=== PATIENT | male | born 1970 | race Caucasian/White ===

== ENCOUNTER 2017-01-16 09:17 | Observation (INO) | payer OTHER ==
[~2017-01-16] VITALS: Ht 180.3 cm; Wt 93.9 kg
[2017-01-16] MEDS ORDERED: IPRATROPIUM BROM 0.5 MG/2.5ML INH SOL NEB ONE ×2 (10:00→10:15)
[2017-01-16] MEDS ORDERED: ALBUTEROL SULF 2.5 MG/0.5ML(0.5%) NEB SOLN NEB ONE ×2 (10:00→10:15)
[2017-01-16] MEDS ORDERED: SODIUM CHLORIDE 0.9% 1,000 ML IV ONE (10:10)
[2017-01-16] MEDS ORDERED: methylPREDNISolone SOD SUCC 125 MG/2 ML VL IV ONE (10:15)
[2017-01-16 10:34] LABS: Basophils # (auto) 0.1 uL; Basophils % (auto) 0.7 % (0.0-2.0); DEFINITIVE VIEW TRANSMISSION; Eosinophils # (auto) 0.9 uL; Eosinophils % (auto) 6.9 % (0.0-7.0); Hematocrit 45.8 % (41.0-53.0); Hemoglobin 15.4 g/dL (13.5-17.5); Lymphocytes # (auto) 1.9 uL; Lymphocytes % (auto) 14.8 % (10.0-50.0); Mean Corpuscular Hemoglobin 30.5 pg (28.0-32.0); Mean Corpuscular Hgb Conc. 33.6 g/dL (32.0-36.0); Mean Corpuscular Volume 90.7 fL (80.0-100.0); Mean Platelet Volume 10.3 fL (7.4-10.4); Monocytes # (auto) 0.8 uL; Neutrophils # (auto) 9.4 uL; Neutrophils % (auto) 71.6 % (37.0-80.0); Platelet Count (auto) 261 10^3/uL (140-450); Red Cell Distribution Width 14.2 % (11.6-16.0); SUSPECT VIEW TRANSMISSION; White Blood Cell 13.1 10^3/uL (4.4-10.8)
[2017-01-16 10:51] LABS: Albumin 4.6 g/dL (3.4-5.0); Bilirubin, Total 0.7 mg/dL (0.2-1.0); Calcium 9.1 mg/dL (8.5-10.1); Magnesium 2.3 mg/dL (1.6-2.6); Potassium 4.3 mmol/L (3.5-5.1); Total Protein 8.2 g/dL (6.4-8.2)
[2017-01-16 13:07] VITALS: BP 111/74
== END 2017-01-16 13:55 | disposition home or self-care (01) | DRG 203 ==
LOC: ER 09:26 → OVERFLOW 10:12 → ER 13:55
PROVIDERS: ADMIT Emergency Medicine; ATTEND Emergency Medicine
DX: J45.901 Unspecified asthma with (acute) exacerbation (principal); Z82.49 Family history of ischemic heart disease and other diseases of the circulatory system; Z83.3 Family history of diabetes mellitus
CPT/HCPCS: 36415; 71020; 80053; 83735; 85025; 93005; 94640; 96361; 96374; 99285; G0378; J2930; J7030

== ENCOUNTER 2017-09-26 20:40 | Emergency (ER) | payer OTHER ==
[~2017-09-26] VITALS: Ht 180.3 cm; Wt 88.5 kg
[2017-09-26] MEDS ORDERED: methylPREDNISolone SOD SUCC 125 MG/2 ML VL IV ONE (20:45)
[2017-09-26 21:13] LABS: Basophils # (auto) 0.1 uL; Basophils % (auto) 0.4 % (0.0-2.0); Eosinophils # (auto) 0.5 uL; Eosinophils % (auto) 4.6 % (0.0-7.0); Hemoglobin 14.6 g/dL (13.5-17.5); Lymphocytes # (auto) 1.7 uL; Lymphocytes % (auto) 14.4 % (10.0-50.0); Mean Corpuscular Hemoglobin 31.5 pg (28.0-32.0); Mean Corpuscular Volume 92.9 fL (80.0-100.0); Monocytes # (auto) 1.1 uL; Monocytes % (auto) 9.6 % (0.0-12.0); Neutrophils # (auto) 8.4 uL; Nucleated Red Blood Cells % 0.1 %; Platelet Count (auto) 228 10^3/uL (140-450); Red Blood Cells 4.63 10^6/uL (4.5-5.90); Red Cell Distribution Width 13.1 % (11.8-14.3); White Blood Cell 11.9 10^3/uL (4.4-10.8)
[2017-09-26 21:25] LABS: Alanine Aminotransferase 44 U/L (16-61); Albumin 4.3 g/dL (3.4-5.0); Alkaline Phosphatase 97 U/L (45-117); Anion Gap 8 (5-15); Aspartate Aminotransferase 24 U/L (15-37); BUN/Creatinine Ratio 22.8; Bilirubin, Total 0.3 mg/dL (0.2-1.0); Blood Urea Nitrogen 23 mg/dL (7-18); Calcium 8.6 mg/dL (8.5-10.1); Carbon Dioxide 28 mmol/L (21-32); Chloride 103 mmol/L (98-107); GFR African American 102 mL/min; GFR Non-African American 85 mL/min; Glucose 100 mg/dL (74-106); Potassium 3.4 mmol/L (3.5-5.1); Sodium 139 mmol/L (136-145)
[2017-09-26 22:05] LABS: Urine Bacteria NONE SEEN /hpf (None Seen); Urine Blood Negative /uL (Negative); Urine Specific Gravity 1.022 (1.001-1.035); Urine WBC 1 /hpf (0 - 3)
[2017-09-26] MEDS ORDERED: IPRATROPIUM BROM 0.5 MG/2.5ML INH SOL NEB ONE (22:15)
[2017-09-26] MEDS ORDERED: ALBUTEROL SULF 2.5 MG/0.5ML(0.5%) NEB SOLN NEB ONE (22:15)
[2017-09-27 00:51] VITALS: BP 115/82
[2017-09-27] MEDS ORDERED: predniSONE 20 MG TAB PO ONE (01:45)
[2017-09-27] MEDS ORDERED: POTASSIUM CHL 20 Meq TABLET PO ONE (01:45)
[2017-09-27] MEDS ORDERED: SODIUM CHLORIDE 0.9% 2,000 ML IV ONE (01:45)
== END 2017-09-27 03:02 | disposition home or self-care (01) ==
LOC: EDBD 20:40 → ER 20:44
DX: J45.901 Unspecified asthma with (acute) exacerbation (principal); J20.9 Acute bronchitis, unspecified; D72.829 Elevated white blood cell count, unspecified; E87.6 Hypokalemia; E86.0 Dehydration
CPT/HCPCS: 36415; 36600; 71010; 80053; 81001; 82805; 83880; 84484; 85025; 93005; 94640; 94660; 96361; 96374; 99285; J7030; J7512

== ENCOUNTER 2018-07-18 04:00 | Inpatient (IN) | payer OTHER ==
[~2018-07-18] VITALS: Ht 182.9 cm; Wt 93.5 kg
[2018-07-18] VITALS (59 sets, daily range): BP systolic 118–174; BP diastolic 20–112
[2018-07-18] MEDS ORDERED: methylPREDNISolone SOD SUCC 125 MG/2 ML VL ONE (04:08)
[2018-07-18] MEDS ORDERED: ALBUTEROL SULF 2.5 MG/0.5ML(0.5%) NEB SOLN ONE ×3 (04:09→08:51)
[2018-07-18 04:22] LABS: Basophils # (auto) 0.1 uL; Basophils % (auto) 1.1 % (0.0-2.0); Eosinophils # (auto) 0.6 uL; Eosinophils % (auto) 4.9 % (0.0-7.0); Hematocrit 43.9 % (41.0-53.0); Hemoglobin 14.9 g/dL (13.5-17.5); Lymphocytes # (auto) 2.5 uL; Lymphocytes % (auto) 19.5 % (10.0-50.0); Mean Corpuscular Hemoglobin 31.7 pg (28.0-32.0); Mean Corpuscular Volume 93.2 fL (80.0-100.0); Monocytes # (auto) 1.1 uL; Monocytes % (auto) 8.5 % (0.0-12.0); Neutrophils # (auto) 8.6 uL; Platelet Count (auto) 292 10^3/uL (140-450); Red Blood Cells 4.71 10^6/uL (4.5-5.90); Red Cell Distribution Width 13.3 % (11.8-14.3); White Blood Cell 13.1 10^3/uL (4.4-10.8)
[2018-07-18] MEDS ORDERED: MIDAZOLAM DRIP 50 mg/50mL 50 ML IV ONE (04:27)
[2018-07-18] MEDS ORDERED: ETOMIDATE (2MG/ML) 20ML VIAL IV ONE ×2 (04:30→06:00)
[2018-07-18] MEDS ORDERED: SUCCINYLCHOLINE CHLORIDE 20 MG/ML 10ML VIAL IV ONE ×2 (04:30→06:00)
[2018-07-18] MEDS ORDERED: methylPREDNISolone SOD SUCC 125 MG/2 ML VL IV ONE (04:30)
[2018-07-18 04:40] LABS: Alanine Aminotransferase 48 U/L (16-61); Albumin 4.2 g/dL (3.4-5.0); Anion Gap 6 (5-15); BUN/Creatinine Ratio 31.3; Blood Urea Nitrogen 31 mg/dL (7-18); Calcium 8.3 mg/dL (8.5-10.1); Carbon Dioxide 28 mmol/L (21-32); Chloride 106 mmol/L (98-107); GFR African American 105 mL/min; GFR Non-African American 86 mL/min; Glucose 189 mg/dL (74-106); Magnesium 2.7 mg/dL (1.6-2.6); Potassium 4.4 mmol/L (3.5-5.1); Sodium 140 mmol/L (136-145)
[2018-07-18 04:59] LABS: Alkaline Phosphatase 114 U/L (45-117); Aspartate Aminotransferase 27 U/L (15-37); Bilirubin, Total 0.3 mg/dL (0.2-1.0); Total Protein 8.4 g/dL (6.4-8.2)
[2018-07-18] MEDS: MIDAZOLAM DRIP 50 mg/50mL 50 ML IV SCH ×3 (05:06→19:29)
[2018-07-18] MEDS ORDERED: MAGNESIUM SULFATE 1GM/100ML 200 ML IV ONE (05:09)
[2018-07-18] MEDS: MAGNESIUM SULFATE 1GM/100ML 100 ML IV SCH ×2 (05:10→06:25)
[2018-07-18] MEDS ORDERED: NICARDIPINE 25MG/250ML BAG KIT 250 ML IV SCH (05:15)
[2018-07-18] MEDS ORDERED: PROPOFOL 100 ML IV ONE (05:25)
[2018-07-18] MEDS ORDERED: ROCURONIUM 10MG/ML 10ML VIAL IV ONE ×2 (05:46→06:45)
[2018-07-18] MEDS ORDERED: ATROPINE SULF 1 MG/10ml SYR IV ONE ×2 (06:00→12:29)
[2018-07-18 06:02] LABS: Urine Bacteria FEW /hpf (None Seen); Urine Blood Negative /uL (Negative); Urine Hyaline Cast FEW /lpf (0 - 2); Urine Mucus FEW (None Seen); Urine Specific Gravity 1.031 (1.001-1.035); Urine WBC 1 /hpf (0 - 3)
[2018-07-18] MEDS ORDERED: PROPOFOL 100 ML IV SCH (06:29)
[2018-07-18] MEDS ORDERED: LEVOFLOXACIN 750MG 150 ML IV ONE (06:30)
[2018-07-18] MEDS: PROPOFOL 100 ML IV SCH (07:07)
[2018-07-18] MEDS ORDERED: SODIUM CHLORIDE 0.9% 1,000 ML IV ONE (07:15)
[2018-07-18] MEDS ORDERED: FAMOTIDINE (10MG/ML) 2ML VL IV ONE (07:15)
[2018-07-18] MEDS ORDERED: ATRACURIUM BESYLATE 1,000 MG in D5W 5% 150 ML IV ONE (08:45)
[2018-07-18] MEDS ORDERED: ALBUTEROL SULF 2.5 MG/0.5ML(0.5%) NEB SOLN NEB STA (08:45)
[2018-07-18] MEDS: ALBUTEROL SULF 2.5 MG/0.5ML(0.5%) NEB SOLN NEB SCH ×9 (09:00→22:12)
[2018-07-18] MEDS ORDERED: IOHEXOL 350 MG/ML 100ML IJ ONE (09:13)
[2018-07-18] MEDS: ATRACURIUM BESYLATE 1,000 MG in D5W 5% 150 ML IV SCH (09:24)
[2018-07-18] MEDS ORDERED: cefTRIAXone 1GM/10ml IVPUSH 10 ML IV ONE (09:45)
[2018-07-18] MEDS ORDERED: ALBUTEROL SULF 2.5 MG/0.5ML(0.5%) NEB SOLN NEB PRN (09:45)
[2018-07-18] MEDS ORDERED: VANCOMYCIN 1GM/250ML 250 ML IV ONE (09:45)
[2018-07-18] MEDS ORDERED: VANCOMYCIN PER PHARMACY 0 MG IV SCH (09:45)
[2018-07-18] MEDS: SODIUM CHLORIDE 0.9% 1,000 ML IV SCH ×3 (10:28→21:26)
[2018-07-18] MEDS ORDERED: NITROGLYCERIN 0.4 MG SL TAB SL PRN (10:45)
[2018-07-18] MEDS ORDERED: MORPHINE SULFATE 4 MG/ML SYR/VIAL IV PRN (10:45)
[2018-07-18] MEDS ORDERED: DEXTROSE (50%) 50ML SYRG IV PRN (10:45)
[2018-07-18] MEDS ORDERED: ALBUTEROL SULF 2.5 MG/0.5ML(0.5%) NEB SOLN NEB SCH (12:00)
[2018-07-18] MEDS ORDERED: VANCOMYCIN 1,500 MG in D5W 5% 250 ML IV SCH (12:00)
[2018-07-18] MEDS ORDERED: IPRATROPIUM BROM 0.5 MG/2.5ML INH SOL NEB SCH (12:00)
[2018-07-18] MEDS: ACCU-CHEK COMFORT CURVE STRIP VI SCH ×3 (13:15→23:36)
[2018-07-18] MEDS: DOXYCYCLINE 100MG/250ML 250 ML IV SCH ×2 (13:30→21:34)
[2018-07-18] MEDS: InsuLIN REG 1unit/0.01ml Soln (100units/ml) SC SCH ×3 (13:31→23:36)
[2018-07-18] MEDS: methylPREDNISolone SOD SUCC 40 MG/ML VL IV SCH ×3 (13:31→21:34)
[2018-07-18] MEDS: IPRATROPIUM BROM 0.5 MG/2.5ML INH SOL NEB SCH ×3 (14:00→22:12)
[2018-07-18] MEDS ORDERED: POTASSIUM CHL 20MEQ/100ML 100 ML IV SCH (14:30)
[2018-07-18] MEDS ORDERED: ENOXAPARIN SOD 40 MG/0.4 ML SYRINGE SC ONE (14:30)
[2018-07-18] MEDS ORDERED: PANTOPRAZOLE 40 MG/10 ML VIAL IV ONE (14:30)
[2018-07-18 14:59] LABS: INR 0.96 (0.9-1.15); Partial Thromboplastin Time 28.3 sec (23.78-33.04); Prothrombin Time 10.3 sec (9.27-12.13)
[2018-07-18] MEDS: VANCOMYCIN 1,500 MG in D5W 5% 250 ML IV SCH (18:39)
[2018-07-18] MEDS ORDERED: fentaNYL Drip 2500mCg/250mlNS 250 ML IV ONE (18:47)
[2018-07-18] MEDS: fentaNYL Drip 2500mCg/250mlNS 250 ML IV SCH (19:00)
[2018-07-18] MEDS: BUDESONIDE (INHALATION) 0.5 MG/2 ML NEB NEB SCH (22:12)
[2018-07-18] MEDS ORDERED: PRE5T PO (22:52)
[2018-07-18] MEDS ORDERED: TRIA0.1O TOP (22:52)
[2018-07-19] VITALS (107 sets, daily range): BP systolic 87–146; BP diastolic 51–84
[2018-07-19] MEDS: PROPOFOL 100 ML IV SCH ×5 (00:53→22:47)
[2018-07-19] MEDS: IPRATROPIUM BROM 0.5 MG/2.5ML INH SOL NEB SCH ×6 (02:05→22:21)
[2018-07-19] MEDS: ALBUTEROL SULF 2.5 MG/0.5ML(0.5%) NEB SOLN NEB SCH ×6 (02:05→22:21)
[2018-07-19 04:13] LABS: Albumin 3.1 g/dL (3.4-5.0); BUN/Creatinine Ratio 20.9; Calcium 6.9 mg/dL (8.5-10.1); Potassium 4.2 mmol/L (3.5-5.1)
[2018-07-19 04:14] LABS: Hematocrit 38.2 % (41.0-53.0); Hemoglobin 14.7 g/dL (13.5-17.5); Platelet Count (auto) 218 10^3/uL (140-450); Red Blood Cells 3.77 10^6/uL (4.5-5.90); Red Cell Distribution Width 15.5 % (11.8-14.3); White Blood Cell 13.2 10^3/uL (4.4-10.8)
[2018-07-19 04:16] LABS: Bilirubin, Total 0.8 mg/dL (0.2-1.0); Total Protein 6.9 g/dL (6.4-8.2)
[2018-07-19 04:19] LABS: Mean Corpuscular Hgb Conc. 38.4 g/dL (32.0-36.0)
[2018-07-19 04:20] LABS: Mean Corpuscular Volume 98.1 fL (80.0-100.0)
[2018-07-19 04:22] LABS: Mean Corpuscular Hemoglobin 38.9 pg (28.0-32.0)
[2018-07-19 04:23] LABS: Basophils % (manual) 0 (0.0-2.0); Blast Cells 0; Eosinophils % (manual) 0 (0-7); Myelocytes % 0; Promyelocytes % 0; Reactive Lymphocytes 0
[2018-07-19] MEDS: ACCU-CHEK COMFORT CURVE STRIP VI SCH ×3 (05:46→18:00)
[2018-07-19] MEDS: VANCOMYCIN 1,500 MG in D5W 5% 250 ML IV SCH ×2 (05:46→18:30)
[2018-07-19] MEDS: methylPREDNISolone SOD SUCC 40 MG/ML VL IV SCH ×3 (05:46→21:26)
[2018-07-19] MEDS: InsuLIN REG 1unit/0.01ml Soln (100units/ml) SC SCH ×3 (05:46→18:30)
[2018-07-19 05:58] LABS: Band Neutrophils % (manual) 11; Lymphocytes % (manual) 5 (10.0-50.0); Metamyelocytes % 2; Monocytes % (manual) 5 (0-12)
[2018-07-19] MEDS: BUDESONIDE (INHALATION) 0.5 MG/2 ML NEB NEB SCH ×2 (06:06→22:21)
[2018-07-19] MEDS ORDERED: cefTRIAXone 1GM/10ml IVPUSH 10 ML IV SCH (09:00)
[2018-07-19] MEDS: MIDAZOLAM DRIP 50 mg/50mL 50 ML IV SCH ×2 (10:07→13:52)
[2018-07-19] MEDS: PANTOPRAZOLE 40 MG/10 ML VIAL IV SCH (10:33)
[2018-07-19] MEDS: ENOXAPARIN SOD 40 MG/0.4 ML SYRINGE SC SCH (10:34)
[2018-07-19] MEDS: ATRACURIUM BESYLATE 1,000 MG in D5W 5% 150 ML IV SCH (10:38)
[2018-07-19] MEDS: DOXYCYCLINE 100MG/250ML 250 ML IV SCH (10:42)
[2018-07-19] MEDS ORDERED: SODIUM CHLORIDE 0.9% 500 ML IV ONE ×2 (12:00→14:45)
[2018-07-19] MEDS: SODIUM CHLORIDE 0.9% 1,000 ML IV SCH (13:00)
[2018-07-19] MEDS ORDERED: AZITHROMYCIN 500MG/ 250ML 250 ML IV ONE (13:15)
[2018-07-19] MEDS ORDERED: LIDOCAINE 1% (LOCAL ANESTH.) PF 5ml SDV ID ONE (18:00)
[2018-07-19] MEDS: fentaNYL Drip 2500mCg/250mlNS 250 ML IV SCH (18:46)
[2018-07-19] MEDS: SODIUM CHLOR 0.9% PF (SALINE LOCK) 10ML VIAL/SYR IV SCH (21:26)
[2018-07-20] VITALS (108 sets, daily range): BP systolic 91–128; BP diastolic 4–98
[2018-07-20] MEDS: ACCU-CHEK COMFORT CURVE STRIP VI SCH ×4 (00:01→18:25)
[2018-07-20] MEDS: SODIUM CHLORIDE 0.9% 1,000 ML IV SCH (02:20)
[2018-07-20] MEDS: IPRATROPIUM BROM 0.5 MG/2.5ML INH SOL NEB SCH ×6 (02:25→22:23)
[2018-07-20] MEDS: ALBUTEROL SULF 2.5 MG/0.5ML(0.5%) NEB SOLN NEB SCH ×6 (02:25→22:23)
[2018-07-20] MEDS: MIDAZOLAM DRIP 50 mg/50mL 50 ML IV SCH ×3 (03:00→21:03)
[2018-07-20 04:57] LABS: Hematocrit 36.6 % (41.0-53.0); Hemoglobin 12.3 g/dL (13.5-17.5); Mean Corpuscular Hemoglobin 31.8 pg (28.0-32.0); Mean Corpuscular Hgb Conc. 33.7 g/dL (32.0-36.0); Mean Corpuscular Volume 94.5 fL (80.0-100.0); Platelet Count (auto) 191 10^3/uL (140-450); Red Blood Cells 3.87 10^6/uL (4.5-5.90); Red Cell Distribution Width 13.9 % (11.8-14.3); White Blood Cell 17.3 10^3/uL (4.4-10.8)
[2018-07-20 05:03] LABS: Basophils % (manual) 0 (0.0-2.0); Blast Cells 0; Eosinophils % (manual) 0 (0-7); Metamyelocytes % 0; Myelocytes % 0; Promyelocytes % 0; Reactive Lymphocytes 0
[2018-07-20 05:17] LABS: Anion Gap 9 (5-15); BUN/Creatinine Ratio 28.7; Blood Urea Nitrogen 27 mg/dL (7-18); Calcium 7.6 mg/dL (8.5-10.1); Carbon Dioxide 24 mmol/L (21-32); Chloride 110 mmol/L (98-107); GFR African American 111 mL/min; GFR Non-African American 92 mL/min; Glucose 137 mg/dL (74-106); Magnesium 3.1 mg/dL (1.6-2.6); Potassium 4.6 mmol/L (3.5-5.1); Sodium 143 mmol/L (136-145)
[2018-07-20 05:54] LABS: Band Neutrophils % (manual) 6; Lymphocytes % (manual) 4 (10.0-50.0); Monocytes % (manual) 2 (0-12)
[2018-07-20] MEDS: VANCOMYCIN 1,500 MG in D5W 5% 250 ML IV SCH ×2 (05:55→16:00)
[2018-07-20] MEDS: methylPREDNISolone SOD SUCC 40 MG/ML VL IV SCH ×3 (05:55→21:33)
[2018-07-20] MEDS: InsuLIN REG 1unit/0.01ml Soln (100units/ml) SC SCH ×4 (05:55→18:00)
[2018-07-20] MEDS: PROPOFOL 100 ML IV SCH (09:00)
[2018-07-20] MEDS: ENOXAPARIN SOD 40 MG/0.4 ML SYRINGE SC SCH (09:41)
[2018-07-20] MEDS: cefTRIAXone 1GM/50ML D5W 50 ML IV SCH (09:43)
[2018-07-20] MEDS: SODIUM CHLOR 0.9% PF (SALINE LOCK) 10ML VIAL/SYR IV SCH ×2 (09:44→21:36)
[2018-07-20] MEDS: AZITHROMYCIN 500MG/ 250ML 250 ML IV SCH (09:44)
[2018-07-20] MEDS: PANTOPRAZOLE 40 MG/10 ML VIAL IV SCH (09:44)
[2018-07-20] MEDS: BUDESONIDE (INHALATION) 0.5 MG/2 ML NEB NEB SCH ×2 (10:03→22:23)
[2018-07-20] MEDS ORDERED: POTASSIUM EFFERVESENT TAB 25 MEQ GT ONE (15:45)
[2018-07-20] MEDS ORDERED: FUROSEMIDE 20 MG/2 ML VIAL IV ONE (15:45)
[2018-07-20] MEDS ORDERED: Glucerna 1.2 Cal 1Liter BOTTLE GT SCH (15:45)
[2018-07-20] MEDS ORDERED: VANCOMYCIN 1,500 MG in D5W 5% 250 ML IV ONE (16:00)
[2018-07-20] MEDS: fentaNYL Drip 2500mCg/250mlNS 250 ML IV SCH (20:06)
[2018-07-21] VITALS (85 sets, daily range): BP systolic 107–155; BP diastolic 54–106
[2018-07-21] MEDS: ACCU-CHEK COMFORT CURVE STRIP VI SCH ×4 (00:35→18:19)
[2018-07-21] MEDS: InsuLIN REG 1unit/0.01ml Soln (100units/ml) SC SCH ×4 (00:35→18:30)
[2018-07-21] MEDS: VANCOMYCIN 1,500 MG in D5W 5% 250 ML IV SCH ×2 (02:10→12:33)
[2018-07-21] MEDS: MIDAZOLAM DRIP 50 mg/50mL 50 ML IV SCH ×3 (02:10→07:15)
[2018-07-21] MEDS: ALBUTEROL SULF 2.5 MG/0.5ML(0.5%) NEB SOLN NEB SCH ×6 (02:12→22:06)
[2018-07-21] MEDS: IPRATROPIUM BROM 0.5 MG/2.5ML INH SOL NEB SCH ×6 (02:13→22:06)
[2018-07-21 05:41] LABS: Hematocrit 36.7 % (41.0-53.0); Hemoglobin 12.3 g/dL (13.5-17.5); Mean Corpuscular Hemoglobin 31.4 pg (28.0-32.0); Mean Corpuscular Hgb Conc. 33.6 g/dL (32.0-36.0); Mean Corpuscular Volume 93.5 fL (80.0-100.0); Platelet Count (auto) 198 10^3/uL (140-450); Red Blood Cells 3.93 10^6/uL (4.5-5.90); Red Cell Distribution Width 13.5 % (11.8-14.3); White Blood Cell 17.2 10^3/uL (4.4-10.8)
[2018-07-21 05:44] LABS: BUN/Creatinine Ratio 43.8; Basophils % (manual) 0 (0.0-2.0); Blast Cells 0; Calcium 7.8 mg/dL (8.5-10.1); Eosinophils % (manual) 0 (0-7); Magnesium 3.1 mg/dL (1.6-2.6); Metamyelocytes % 0; Myelocytes % 0; Potassium 4.7 mmol/L (3.5-5.1); Promyelocytes % 0; Reactive Lymphocytes 0
[2018-07-21] MEDS: methylPREDNISolone SOD SUCC 40 MG/ML VL IV SCH ×3 (06:36→22:20)
[2018-07-21 06:54] LABS: Band Neutrophils % (manual) 2; Lymphocytes % (manual) 2 (10.0-50.0); Monocytes % (manual) 3 (0-12)
[2018-07-21] MEDS: cefTRIAXone 1GM/50ML D5W 50 ML IV SCH (09:14)
[2018-07-21] MEDS: PANTOPRAZOLE 40 MG/10 ML VIAL IV SCH (09:14)
[2018-07-21] MEDS: AZITHROMYCIN 500MG/ 250ML 250 ML IV SCH (09:14)
[2018-07-21] MEDS: SODIUM CHLOR 0.9% PF (SALINE LOCK) 10ML VIAL/SYR IV SCH ×2 (09:15→22:20)
[2018-07-21] MEDS: ENOXAPARIN SOD 40 MG/0.4 ML SYRINGE SC SCH (09:15)
[2018-07-21] MEDS: BUDESONIDE (INHALATION) 0.5 MG/2 ML NEB NEB SCH ×2 (09:58→22:06)
[2018-07-21] MEDS ORDERED: POTASSIUM EFFERVESENT TAB 25 MEQ PO ONE (11:45)
[2018-07-21] MEDS ORDERED: FUROSEMIDE 20 MG/2 ML VIAL IV ONE (11:45)
[2018-07-21] MEDS ORDERED: ACETAMINOPHEN 325 MG RECT SUPP PR PRN (17:00)
[2018-07-21] MEDS: fentaNYL Drip 2500mCg/250mlNS 250 ML IV SCH (18:19)
[2018-07-22] VITALS (28 sets, daily range): BP systolic 100–148; BP diastolic 48–90
[2018-07-22] MEDS: VANCOMYCIN 1,500 MG in D5W 5% 250 ML IV SCH ×2 (00:42→08:02)
[2018-07-22] MEDS: ACCU-CHEK COMFORT CURVE STRIP VI SCH ×2 (00:42→05:58)
[2018-07-22] MEDS: InsuLIN REG 1unit/0.01ml Soln (100units/ml) SC SCH ×2 (00:43→05:59)
[2018-07-22] MEDS: ALBUTEROL SULF 2.5 MG/0.5ML(0.5%) NEB SOLN NEB SCH ×5 (02:27→19:03)
[2018-07-22] MEDS: IPRATROPIUM BROM 0.5 MG/2.5ML INH SOL NEB SCH ×6 (02:27→19:03)
[2018-07-22 04:16] LABS: Basophils # (auto) 0 uL; Basophils % (auto) 0.1 % (0.0-2.0); Eosinophils # (auto) 0 uL; Hemoglobin 13.2 g/dL (13.5-17.5); Lymphocytes # (auto) 0.6 uL; Lymphocytes % (auto) 3.5 % (10.0-50.0); Mean Corpuscular Hemoglobin 31.3 pg (28.0-32.0); Mean Corpuscular Hgb Conc. 33.8 g/dL (32.0-36.0); Mean Corpuscular Volume 92.5 fL (80.0-100.0); Monocytes # (auto) 1.1 uL; Neutrophils # (auto) 15.8 uL; Neutrophils % (auto) 90.4 % (37.0-80.0); Platelet Count (auto) 216 10^3/uL (140-450); Red Blood Cells 4.22 10^6/uL (4.5-5.90); Red Cell Distribution Width 13.3 % (11.8-14.3); White Blood Cell 17.5 10^3/uL (4.4-10.8)
[2018-07-22 04:36] LABS: Calcium 8.1 mg/dL (8.5-10.1); Potassium 3.9 mmol/L (3.5-5.1)
[2018-07-22 04:43] LABS: BUN/Creatinine Ratio 44.6
[2018-07-22] MEDS: methylPREDNISolone SOD SUCC 40 MG/ML VL IV SCH ×3 (05:58→21:48)
[2018-07-22] MEDS: PROPOFOL 100 ML IV SCH (06:08)
[2018-07-22] MEDS: BUDESONIDE (INHALATION) 0.5 MG/2 ML NEB NEB SCH ×2 (10:00→19:03)
[2018-07-22] MEDS: SODIUM CHLOR 0.9% PF (SALINE LOCK) 10ML VIAL/SYR IV SCH ×2 (10:13→21:49)
[2018-07-22] MEDS: PANTOPRAZOLE 40 MG/10 ML VIAL IV SCH (10:13)
[2018-07-22] MEDS: AZITHROMYCIN 500MG/ 250ML 250 ML IV SCH (10:13)
[2018-07-22] MEDS: cefTRIAXone 1GM/50ML D5W 50 ML IV SCH (10:13)
[2018-07-22] MEDS: ENOXAPARIN SOD 40 MG/0.4 ML SYRINGE SC SCH (10:13)
[2018-07-22] MEDS ORDERED: DOXYCYCLINE 100 MG TAB/CAP PO ONE (11:30)
[2018-07-22] MEDS ORDERED: DOCUSATE SOD 100 MG CAP PO ONE (12:30)
[2018-07-22] MEDS ORDERED: ZOLPIDEM TARTRATE 5 MG TAB PO PRN (18:30)
[2018-07-22] MEDS: ONDANSETRON HCL 4 MG/2 ML VIAL IV PRN (18:54)
[2018-07-22] MEDS: ACETAMINOPHEN 500 MG TAB PO PRN (20:52)
[2018-07-22] MEDS: DOXYCYCLINE 100 MG TAB/CAP PO SCH (21:48)
[2018-07-22] MEDS: DOCUSATE SOD 100 MG CAP PO SCH (21:49)
[2018-07-23] VITALS (7 sets, daily range): BP systolic 115–123; BP diastolic 74–85
[2018-07-23] MEDS: ACETAMINOPHEN 500 MG TAB PO PRN ×2 (04:38→10:56)
[2018-07-23 05:58] LABS: Basophils # (auto) 0 uL; Basophils % (auto) 0.1 % (0.0-2.0); Eosinophils # (auto) 0 uL; Hematocrit 38.3 % (41.0-53.0); Hemoglobin 13.1 g/dL (13.5-17.5); Lymphocytes # (auto) 0.8 uL; Lymphocytes % (auto) 4.8 % (10.0-50.0); Mean Corpuscular Hemoglobin 31.8 pg (28.0-32.0); Mean Corpuscular Hgb Conc. 34.4 g/dL (32.0-36.0); Mean Corpuscular Volume 92.6 fL (80.0-100.0); Monocytes % (auto) 6.4 % (0.0-12.0); Neutrophils # (auto) 14.4 uL; Neutrophils % (auto) 88.7 % (37.0-80.0); Nucleated Red Blood Cells % 0.1 %; Platelet Count (auto) 209 10^3/uL (140-450); Red Blood Cells 4.13 10^6/uL (4.5-5.90); Red Cell Distribution Width 13.1 % (11.8-14.3); White Blood Cell 16.2 10^3/uL (4.4-10.8)
[2018-07-23] MEDS: methylPREDNISolone SOD SUCC 40 MG/ML VL IV SCH (06:04)
[2018-07-23 06:10] LABS: BUN/Creatinine Ratio 40.8; Calcium 8.1 mg/dL (8.5-10.1); Potassium 4.7 mmol/L (3.5-5.1)
[2018-07-23] MEDS: IPRATROPIUM BROM 0.5 MG/2.5ML INH SOL NEB SCH ×4 (06:43→19:23)
[2018-07-23] MEDS: ALBUTEROL SULF 2.5 MG/0.5ML(0.5%) NEB SOLN NEB SCH ×4 (06:43→19:23)
[2018-07-23] MEDS: BUDESONIDE (INHALATION) 0.5 MG/2 ML NEB NEB SCH ×2 (06:43→19:24)
[2018-07-23] MEDS: SODIUM CHLOR 0.9% PF (SALINE LOCK) 10ML VIAL/SYR IV SCH ×2 (10:00→21:53)
[2018-07-23] MEDS: DOXYCYCLINE 100 MG TAB/CAP PO SCH ×2 (10:01→21:52)
[2018-07-23] MEDS: ENOXAPARIN SOD 40 MG/0.4 ML SYRINGE SC SCH (10:01)
[2018-07-23] MEDS: DOCUSATE SOD 100 MG CAP PO SCH ×2 (10:02→21:54)
[2018-07-23] MEDS: ONDANSETRON HCL 4 MG/2 ML VIAL IV PRN (10:55)
[2018-07-23] MEDS ORDERED: TEMAZEPAM 15 MG CAP PO PRN (11:30)
[2018-07-23] MEDS: HYDROcodone-ACET 5/325MG TAB PO PRN ×3 (14:49→21:53)
[2018-07-24 05:00] VITALS: BP 118/73
[2018-07-24] MEDS: HYDROcodone-ACET 5/325MG TAB PO PRN (05:34)
[2018-07-24] MEDS: ALBUTEROL SULF 2.5 MG/0.5ML(0.5%) NEB SOLN NEB SCH ×2 (05:57→10:11)
[2018-07-24] MEDS: IPRATROPIUM BROM 0.5 MG/2.5ML INH SOL NEB SCH ×2 (05:57→10:11)
[2018-07-24 08:22] VITALS: BP 113/70
[2018-07-24] MEDS: DOXYCYCLINE 100 MG TAB/CAP PO SCH (09:38)
[2018-07-24] MEDS: DOCUSATE SOD 100 MG CAP PO SCH (09:38)
[2018-07-24] MEDS: SODIUM CHLOR 0.9% PF (SALINE LOCK) 10ML VIAL/SYR IV SCH (09:38)
[2018-07-24] MEDS ORDERED: predniSONE 20 MG TAB PO SCH (10:00)
[2018-07-24] MEDS: BUDESONIDE (INHALATION) 0.5 MG/2 ML NEB NEB SCH (10:11)
[2018-07-24 13:33] VITALS: BP 117/73
== END 2018-07-24 13:50 | disposition home or self-care (01) | DRG 871 ==
LOC: EDBD 04:00 → ER 04:03 → TELE 04:04 → ICU WEST 11:12 → TELE-CENTR 07-22 20:00 → CENTRAL 07-23 13:01
PROVIDERS: ADMIT Internal Medicine; ATTEND Internal Medicine
PROC: 5A1945Z Respiratory Ventilation, 24-96 Consecutive Hours (ICD-10-PCS; principal; 2018-07-18)
PROC: 0BH17EZ Insertion of Endotracheal Airway into Trachea, Via Natural or Artificial Opening (ICD-10-PCS; 2018-07-18)
PROC: 5A09357 Assistance with Respiratory Ventilation, Less than 24 Consecutive Hours, Continuous Positive Airway Pressure (ICD-10-PCS; 2018-07-18)
PROC: 02HV33Z Insertion of Infusion Device into Superior Vena Cava, Percutaneous Approach (ICD-10-PCS; 2018-07-19)
DX: A41.9 Sepsis, unspecified organism (principal); J96.01 Acute respiratory failure with hypoxia; J96.02 Acute respiratory failure with hypercapnia; J18.0 Bronchopneumonia, unspecified organism; J45.52 Severe persistent asthma with status asthmaticus; I10 Essential (primary) hypertension; L30.9 Dermatitis, unspecified; E66.3 Overweight; Z79.51 Long term (current) use of inhaled steroids; Z82.49 Family history of ischemic heart disease and other diseases of the circulatory system; Z91.81 History of falling; Z83.3 Family history of diabetes mellitus; Z68.28 Body mass index [BMI] 28.0-28.9, adult; Z88.1 Allergy status to other antibiotic agents
CPT/HCPCS: 31500; 36415; 36569; 36600; 70450; 71045; 71260; 74177; 80048; 80053; 80202; 81001; 82805; 82962; 83036; 83735; 83880; 84443; 84484; 85007; 85025; 85027; 85379; 85610; 85730; 87040; 87070; 87081; 87086; 87205; 93005; 93926; 93971; 94002; 94003; 94640; 94644; 96365; 96367; 96375; 97116; 97163; 97530; A6257; C9113; J0330; J0696; J1815; J1956; J2250; J2405; J2704; J3480; J3490; J7060

== ENCOUNTER 2020-03-04 14:01 | Emergency (ER) | payer OTHER ==
[~2020-03-04] VITALS: Ht 177.8 cm; Wt 90.7 kg
[~2020-03-04 14:01] MED LIST: PRE5T PO; TRIA0.1O TOP
[2020-03-04 14:16] VITALS: BP 114/62
[2020-03-04] MEDS ORDERED: methylPREDNISolone SOD SUCC 125 MG/2 ML VL IM ONE (15:45)
== END 2020-03-04 16:12 | disposition home or self-care (01) ==
LOC: EDBD 14:01 → ER 14:01
DX: J45.901 Unspecified asthma with (acute) exacerbation (principal)
CPT/HCPCS: 71046; 96372; 99283; J2930

== ENCOUNTER 2020-03-18 00:04 | Emergency (ER) | payer OTHER ==
[~2020-03-18] VITALS: Ht 180.3 cm; Wt 90.7 kg
[2020-03-18] MEDS ORDERED: IPRATROPIUM BROM 0.5 MG/2.5ML INH SOL NEB ONE (00:30)
[2020-03-18] MEDS ORDERED: ALBUTEROL SULF 2.5 MG/0.5ML(0.5%) NEB SOLN NEB ONE (00:30)
[2020-03-18 01:39] LABS: INR 1.08 (0.9-1.15); Partial Thromboplastin Time 28.5 sec (23.64-32.05)
[2020-03-18 01:43] LABS: Alanine Aminotransferase 47 U/L (16-61); Albumin 4.1 g/dL (3.4-5.0); Anion Gap 7 (5-15); Aspartate Aminotransferase 25 U/L (15-37); BUN/Creatinine Ratio 23.3; Blood Urea Nitrogen 27 mg/dL (7-18); Calcium 8.6 mg/dL (8.5-10.1); Carbon Dioxide 27 mmol/L (21-32); Chloride 103 mmol/L (98-107); GFR African American 86 mL/min; GFR Non-African American 71 mL/min; Glucose 98 mg/dL (74-106); Magnesium 2.2 mg/dL (1.6-2.6); Potassium 3.8 mmol/L (3.5-5.1); Sodium 137 mmol/L (136-145)
[2020-03-18 01:48] LABS: Alkaline Phosphatase 99 U/L (45-117); Bilirubin, Total 0.4 mg/dL (0.2-1.0); Total Protein 7.6 g/dL (6.4-8.2)
[2020-03-18 02:19] LABS: Basophils # (auto) 0.1 10 ^3/uL (0-0.2); Basophils % (auto) 0.4 % (0.0-2.0); Eosinophils # (auto) 0.7 10 ^3/uL (0-0.8); Eosinophils % (auto) 3.9 % (0.0-7.0); Hematocrit 44.7 % (41.0-53.0); Hemoglobin 15.1 g/dL (13.5-17.5); Lymphocytes # (auto) 1.5 10 ^3/uL (0.4-5.4); Lymphocytes % (auto) 8.9 % (10.0-50.0); Mean Corpuscular Hemoglobin 31.3 pg (28.0-32.0); Mean Corpuscular Hgb Conc. 33.8 g/dL (32.0-36.0); Mean Corpuscular Volume 92.7 fL (80.0-100.0); Monocytes # (auto) 0.7 10 ^3/uL (0-1.3); Monocytes % (auto) 4.4 % (0.0-12.0); Neutrophils % (auto) 82.4 % (37.0-80.0); Nucleated Red Blood Cells % 0.1 %; Platelet Count (auto) 219 10^3/uL (140-450); Red Blood Cells 4.82 10^6/uL (4.5-5.90); Red Cell Distribution Width 13.1 % (11.8-14.3)
[2020-03-18] MEDS ORDERED: methylPREDNISolone SOD SUCC 125 MG/2 ML VL IV ONE (04:15)
[2020-03-18 05:05] VITALS: BP 102/64
== END 2020-03-18 04:41 | disposition home or self-care (01) ==
LOC: ER 00:04 → EDBD 00:04 → ER 04:41
DX: J45.901 Unspecified asthma with (acute) exacerbation (principal); J06.9 Acute upper respiratory infection, unspecified
CPT/HCPCS: 36415; 71045; 80053; 83735; 83880; 84484; 85025; 85610; 85730; 93005; 94644; 96374; 99285; J2930; J7644

== ENCOUNTER 2020-04-03 04:47 | Inpatient (IN) | payer OTHER ==
[~2020-04-03] VITALS: Ht 180.3 cm; Wt 101.4 kg
[2020-04-03] MEDS ORDERED: methylPREDNISolone SOD SUCC 125 MG/2 ML VL ONE (04:53)
[2020-04-03] MEDS ORDERED: IPRATROPIUM BROM 0.5 MG/2.5ML INH SOL NEB ONE (05:00)
[2020-04-03] MEDS ORDERED: ALBUTEROL SULF 2.5 MG/0.5ML(0.5%) NEB SOLN HHN ONE (05:00)
[2020-04-03] MEDS ORDERED: ALBUTEROL SULF 2.5 MG/0.5ML(0.5%) NEB SOLN NEB ONE (05:00)
[2020-04-03] MEDS ORDERED: IPRATROPIUM BROM 0.5 MG/2.5ML INH SOL HHN ONE (05:00)
[2020-04-03] MEDS ORDERED: methylPREDNISolone SOD SUCC 125 MG/2 ML VL IV ONE ×2 (05:00)
[2020-04-03 05:34] LABS: Basophils # (auto) 0.1 10 ^3/uL (0-0.2); Basophils % (auto) 0.8 % (0.0-2.0); Eosinophils # (auto) 0.6 10 ^3/uL (0-0.8); Eosinophils % (auto) 6.1 % (0.0-7.0); Lymphocytes % (auto) 30.9 % (10.0-50.0); Mean Corpuscular Hemoglobin 31.5 pg (28.0-32.0); Mean Corpuscular Hgb Conc. 34.1 g/dL (32.0-36.0); Mean Corpuscular Volume 92.4 fL (80.0-100.0); Monocytes # (auto) 0.7 10 ^3/uL (0-1.3); Monocytes % (auto) 7.1 % (0.0-12.0); Neutrophils # (auto) 5.4 10 ^3/uL (1.6-8.6); Neutrophils % (auto) 55.1 % (37.0-80.0); Platelet Count (auto) 229 10^3/uL (140-450); Red Blood Cells 4.77 10^6/uL (4.5-5.90); Red Cell Distribution Width 13.2 % (11.8-14.3); White Blood Cell 9.8 10^3/uL (4.4-10.8)
[2020-04-03 05:59] LABS: Anion Gap 7 (5-15); Calcium 8.3 mg/dL (8.5-10.1); Carbon Dioxide 25 mmol/L (21-32); Chloride 109 mmol/L (98-107); Glucose 112 mg/dL (74-106); Magnesium 2.2 mg/dL (1.6-2.6); Potassium 3.7 mmol/L (3.5-5.1); Sodium 141 mmol/L (136-145)
[2020-04-03] MEDS ORDERED: LORazepam 0.5 MG TAB PO PRN (06:00)
[2020-04-03] MEDS ORDERED: HYDROcodone-ACET 5/325MG TAB PO PRN (06:00)
[2020-04-03] MEDS ORDERED: ALBUTEROL SULF 2.5 MG/0.5ML(0.5%) NEB SOLN NEB PRN (06:00)
[2020-04-03] MEDS ORDERED: ACETAMINOPHEN 325 MG TAB PO PRN (06:00)
[2020-04-03] MEDS ORDERED: MORPHINE SULF INJ 2 MG/ML SYRINGE 1ML IV PRN (06:00)
[2020-04-03] MEDS ORDERED: DOCUSATE SOD 100 MG CAP PO PRN (06:00)
[2020-04-03] MEDS ORDERED: IPRATROPIUM BROM 0.5 MG/2.5ML INH SOL NEB PRN (06:00)
[2020-04-03] MEDS ORDERED: ONDANSETRON HCL 4 MG/2 ML VIAL IV PRN (06:00)
[2020-04-03 06:04] LABS: Alanine Aminotransferase 80 U/L (16-61); Alkaline Phosphatase 103 U/L (45-117); Aspartate Aminotransferase 31 U/L (15-37); BUN/Creatinine Ratio 23.1; Bilirubin, Total 0.2 mg/dL (0.2-1.0); Blood Urea Nitrogen 24 mg/dL (7-18); GFR African American 98 mL/min; GFR Non-African American 81 mL/min; Total Protein 6.7 g/dL (6.4-8.2)
[2020-04-03 07:02] LABS: Cholesterol 203 mg/dL (< 200); HDL Cholesterol 32 mg/dL (40-59); LDL Cholesterol 133 mg/dL (< 100); Triglycerides 250 mg/dL (< 150)
[2020-04-03 07:27] LABS: Urine Bacteria NONE SEEN /hpf (None Seen); Urine Blood Negative /uL (Negative); Urine Specific Gravity 1.019 (1.001-1.035); Urine WBC <1 /hpf (0 - 3)
--- NOTE | 2020-04-03 09:25 | NUR ---
REPORT Received report from Linnette FIELD, awaiting for patient to arrive to room 265.
[2020-04-03] MEDS ORDERED: methylPREDNISolone SOD SUCC 125 MG/2 ML VL IV SCH (10:00)
--- NOTE | 2020-04-03 10:20 | NUR ---
Telemetry admit from ANITA CARTER admitted to Telemetry unit after SBAR received. Patient oriented to BOYD KAUR RN primary RN, unit, room, bed, and unit policies regarding patient care and visiting hours. Patient now on continuous telemetry monitoring, tele box # 17 and telemetry reading on arrival to unit is SR. Patient placed on bedside oxygen, weighed by bedscale and encouraged to call if they need something. All questions and concerns addressed, patient verbalized understanding.
[2020-04-03] MEDS: cefTRIAXone 1GM/50ML D5W 50 ML IV SCH (10:53)
--- NOTE | 2020-04-03 12:33 | NUR ---
COVID Patient tested negative for covid-19. Will notify physician and charge nurse to transfer patient to regular floor.
--- NOTE | 2020-04-03 14:16 | NUR ---
Patient transferred to room 201 with RASHDIA Kong. Patient on RA with O2 Sat of 93%. No distress, sob, or pain noted at this time.
--- NOTE | 2020-04-03 14:16 | NUR ---
PATIENT ARRIVED ON UNIT. ORIENTED TO THIS RN, CALL LIGHT, AND TELE UNIT. PATIENT A/O X 4CONCERNS ADDRESSED. PATIENT RESPIRATIONS EVEN UNLABORED, LUNG SOUNDS CLEAR ON ROOM AIR. FALL PRECAUTIONS IN PLACE. WILL CONTINUE TO MONITOR.
--- NOTE | 2020-04-03 14:21 | NUR ---
Gave report to Ibis FIELD. If Luann has any questions, she can call this nurse.
[2020-04-03 16:45] VITALS: BP 115/87
--- NOTE | 2020-04-03 18:58 | NUR ---
CARE ENDORSED TO JESSICA FIELD
--- NOTE | 2020-04-03 19:35 | NUR ---
Opening Shift Note Assumed care of patient, awake and alert X4. No S/S of distress/SOB or pain. Call light is within reach, side rails up x2, bed is in the lowest position. Instructed on POC and to call for assist PRN, will continue to monitor for changes Q1hr and PRN.
--- NOTE | 2020-04-03 20:16 | NUR ---
Respiratory note: ASSESSED PT FOR PRN MED NEB TX. PS SHOWS NO S/S OF SOB OR RESPIRATORY DISTRESS. INFORMED PT IF SOB OCCURS CONTACT RESPIRATORY FOR TX. WILL CONTINUE TO MONITOR.
[2020-04-03 22:00] VITALS: BP 129/86
[2020-04-03] MEDS: methylPREDNISolone SOD SUCC 40 MG/ML VL IV SCH (22:08)
[2020-04-03] MEDS: DOXYCYCLINE 100 MG TAB/CAP PO SCH (22:09)
--- NOTE | 2020-04-04 01:28 | NUR ---
Paged respiratory, patient is asking for a breathing treatment, audible wheezing noted.
[2020-04-04 05:00] VITALS: BP 124/75
[2020-04-04] MEDS: methylPREDNISolone SOD SUCC 40 MG/ML VL IV SCH (05:58)
--- NOTE | 2020-04-04 07:00 | NUR ---
Opening Shift Note Received report on the patient. Awake lying in bed. Patient shows no signs of distress at this time. Discussed the plan of care with the patient. Bed in lowest position, side rails up x2, and the call light is within reach.
[2020-04-04 09:00] VITALS: BP 126/90
[2020-04-04] MEDS: cefTRIAXone 1GM/50ML D5W 50 ML IV SCH (10:20)
[2020-04-04] MEDS: DOXYCYCLINE 100 MG TAB/CAP PO SCH (10:20)
[2020-04-04 12:38] VITALS: BP 126/90
[2020-04-04 13:00] VITALS: BP 104/80
== END 2020-04-04 14:02 | disposition home or self-care (01) | DRG 202 ==
LOC: ER 04:47 → EDBD 04:47 → OVERFLOW 04:48 → EAST 10:11 → CENTRAL 14:17
PROVIDERS: ADMIT Hospitalist; ATTEND Internal Medicine
DX: J45.902 Unspecified asthma with status asthmaticus (principal); J18.9 Pneumonia, unspecified organism; E66.9 Obesity, unspecified; Z20.828 Contact with and (suspected) exposure to other viral communicable diseases; Z68.31 Body mass index [BMI] 31.0-31.9, adult; Z82.5 Family history of asthma and other chronic lower respiratory diseases; Z88.1 Allergy status to other antibiotic agents; Z79.899 Other long term (current) drug therapy
CPT/HCPCS: 36415; 71045; 80053; 80061; 81001; 83036; 83605; 83735; 83880; 84484; 85025; 87040; 87070; 87081; 87804; 87880; 94640; 94660; 99291; G0378; J0696

== ENCOUNTER 2021-04-28 20:45 | Emergency (ER) | payer OTHER ==
[~2021-04-28] VITALS: Ht 182.9 cm; Wt 99.8 kg
[2021-04-28 20:45] VITALS: BP 133/84
== END 2021-04-29 00:18 | disposition home or self-care (01) ==
LOC: ER 20:47
DX: S92.351A Displaced fracture of fifth metatarsal bone, right foot, initial encounter for closed fracture (principal); S90.511A Abrasion, right ankle, initial encounter; J45.909 Unspecified asthma, uncomplicated; Z88.1 Allergy status to other antibiotic agents; Z79.899 Other long term (current) drug therapy; V49.59XA Passenger injured in collision with other motor vehicles in traffic accident, initial encounter; Y93.89 Activity, other specified; Y92.488 Other paved roadways as the place of occurrence of the external cause; Y99.8 Other external cause status
CPT/HCPCS: 29515; 73610; 73630

== ENCOUNTER 2023-09-27 10:31 | Emergency (ER) | payer OTHER ==
[~2023-09-27] VITALS: Ht 180.3 cm; Wt 100.0 kg
[2023-09-27 15:23] LABS: COVID19 ANTIGEN SOFIA FIA NEGATIVE (NEGATIVE)
[2023-09-27 15:24] LABS: Rapid Influenza B Negative (Negative)
[2023-09-27 15:26] LABS: Rapid Influenza A Positive (Negative)
[2023-09-27] MEDS ORDERED: DexAMETHasone SOD PHOS 10MG/1ML VIAL INJ IV ONE (15:30)
[2023-09-27] MEDS ORDERED: PRED20TA2 PO (15:39)
[2023-09-27] MEDS ORDERED: BALO80TA PO (15:39)
[2023-09-27 15:58] VITALS: BP 132/86; PULSE 96; RESP 18; TEMP 98.8; O2SAT 98
== END 2023-09-27 16:13 | disposition home or self-care (01) ==
LOC: EDBD 10:31 → ER 10:31
DX: J10.1 Influenza due to other identified influenza virus with other respiratory manifestations (principal); J45.909 Unspecified asthma, uncomplicated; Z98.890 Other specified postprocedural states; Z20.822 Contact with and (suspected) exposure to COVID-19
CPT/HCPCS: 36415; 71046; 87426; 87804; 96374; 99284; J1100